=== PATIENT | female | born 1990 | race Caucasian/White ===

== ENCOUNTER 2018-10-26 19:34 | Emergency (ER) | payer OTHER ==
[~2018-10-26] VITALS: Ht 165.1 cm; Wt 53.5 kg
[2018-10-26] MEDS ORDERED: KETO10TA2 PO (22:54)
== END 2018-10-27 01:00 | disposition home or self-care (01) ==
LOC: ER 19:34
DX: L84 Corns and callosities (principal)

== ENCOUNTER 2018-12-26 05:11 | Emergency (ER) | payer OTHER ==
[~2018-12-26] VITALS: Ht 165.1 cm; Wt 52.6 kg
[~2018-12-26 05:11] MED LIST: KETO10TA2 PO
== END 2018-12-26 11:58 | disposition home or self-care (01) ==
LOC: ER 05:11
DX: O20.0 Threatened abortion (principal)

== ENCOUNTER 2019-03-30 19:33 | Emergency (ER) | payer OTHER ==
[~2019-03-30] VITALS: Ht 157.5 cm; Wt 54.4 kg
[2019-03-30] MEDS ORDERED: TAGAMET300 MG (19:45)
== END 2019-03-30 21:37 | disposition home or self-care (01) ==
LOC: ER 19:33
DX: R53.81 Other malaise (principal)

== ENCOUNTER 2019-04-15 14:46 | Emergency (ER) | payer OTHER ==
[~2019-04-15] VITALS: Ht 165.1 cm; Wt 53.5 kg
[~2019-04-15 14:46] MED LIST changes: +TAGAMET300 MG
== END 2019-04-15 17:00 | disposition home or self-care (01) ==
LOC: ER 14:46
DX: S93.491A Sprain of other ligament of right ankle, initial encounter (principal); W18.43XA Slipping, tripping and stumbling without falling due to stepping from one level to another, initial encounter; Y93.89 Activity, other specified; Y92.89 Other specified places as the place of occurrence of the external cause; Y99.8 Other external cause status

== ENCOUNTER 2019-11-08 16:29 | Emergency (ER) | payer OTHER ==
[~2019-11-08] VITALS: Ht 165.1 cm; Wt 54.4 kg
== END 2019-11-08 19:23 | disposition home or self-care (01) ==
LOC: ER 16:29
DX: K29.70 Gastritis, unspecified, without bleeding (principal)